=== PATIENT | male | born 1985 | race Caucasian/White ===

== ENCOUNTER → 2018-03-26 | Outpatient (CLI) | payer BC ==
--- NOTE | 2018-03-26 18:36 | XR ---
EXAMINATION TYPE: XR KUB DATE OF EXAM: 03/26/2018 COMPARISON: NONE HISTORY: Flank pain TECHNIQUE: 2 views supine FINDINGS: There is no sign of intestinal obstruction or pneumoperitoneum. Fecal pattern is normal. Th ere is no evidence of a mass. There are phleboliths in the pelvis. Sacroiliac joints appear normal. T here are no pathologic calcifications over the kidneys. IMPRESSION: Nonacute abdomen.
--- NOTE | 2018-03-26 19:29 | US ---
EXAMINATION TYPE: US kidneys/renal and bladder DATE OF EXAM: 03/26/2018 COMPARISON: NONE CLINICAL HISTORY: Flank Pain R10.31 R10.32. Frequency of urination EXAM MEASUREMENTS: Right Kidney: 11.5 x 5.2 x 7.5 cm Left Kidney: 11.6 x 6.5 x 6.8 cm Post Void Residual Volume: 42.0 mL Right Kidney: fluid noted in renal pelvis, even post void Left Kidney: No hydronephrosis or masses seen Bladder: wnl Bilateral Jets seen: Yes Normal Post Void Residual: yes There is no evidence for hydronephrosis at this point in time. No nephrolithiasis is seen. . The u rinary bladder is anechoic. Bilateral ureteral jets are seen. IMPRESSION: There is probably a 1.6 cm right renal parapelvic cyst. No evidence of renal obstruction. No evidence of solid renal mass.
== END | disposition home or self-care (01) ==
LOC: RADUSMAIN 17:51
PROVIDERS: ATTEND Urology
DX: R10.31 Right lower quadrant pain (principal); R10.32 Left lower quadrant pain; R35.0 Frequency of micturition
CPT/HCPCS: 74018; 76770

== ENCOUNTER → 2019-10-31 | Outpatient (CLI) | payer BC ==
--- NOTE | 2019-11-01 08:45 | US ---
EXAMINATION TYPE: US renals and bladder DATE OF EXAM: 10/31/2019 COMPARISON: US 03/26/2018 CLINICAL HISTORY: N20.0 Kidney stones. EXAM MEASUREMENTS: Right Kidney: 11.6 x 5.1 x 6.1 cm Left Kidney: 11.8 x 5.9 x 6.1 cm Right Kidney: small amount of fluid seen in renal pelvis. No hydronephrosis. Left Kidney: No hydronephrosis or masses seen Bladder: wnl Bilateral Jets seen: Yes There is no evidence for hydronephrosis at this point in time. No nephrolithiasis is seen. No alan s are identified. The urinary bladder is anechoic. Bilateral ureteral jets are seen. IMPRESSION: Unremarkable renal ultrasound. No hydronephrosis. No nephrolithiasis sonographically of e ither kidney.
== END | disposition home or self-care (01) ==
LOC: RADUSMAIN 17:26
PROVIDERS: ATTEND Family Medicine
DX: N20.0 Calculus of kidney (principal)
CPT/HCPCS: 76770

== ENCOUNTER → 2022-01-17 | Outpatient (CLI) | payer MEDICAID ==
--- NOTE | 2022-01-17 10:58 | US ---
EXAMINATION TYPE: US scrotum with doppler. Grayscale and color Doppler Duplex imaging performed of t lissette scrotum. DATE OF EXAM: 01/17/2022 COMPARISON: NONE CLINICAL HISTORY: E29.1 TESTICULAR HYPOFUNCTION. EXAM MEASUREMENTS: TESTICLES: Right Testicle: 3.7 x 2.0 x 2.8 cm Left Testicle: 4.7 x 2.5 x 3.2 cm EPIDIDYMIS HEAD: Right Epididymis: 0.8 cm Left Epididymis: 1.2 cm Left cystic cluster measuring 0.5cm Doppler performed to assess for testicular vascularity; good bilateral color flow and waveforms are s een. Presence of hydroceles: no Presence of varicoceles: Left shows slightly dilated vessels. Testicles are symmetric and normal in size. No concerning focal intratesticular mass. IMPRESSION: As above.
[2022-01-17 18:42] LABS: Albumin 4.5 g/dL (3.8-4.9); Estradiol 33.3 pg/mL; Follicle Stimulating Hormone 2.2 mIU/mL
[2022-01-17 20:02] LABS: Protein, Total 7.2 g/dL (6.2-8.2)
== END | disposition home or self-care (01) ==
LOC: RADUSWWP 10:10
PROVIDERS: ATTEND Obstetrics & Gynecology Reproductive Endocrinology
DX: Z01.818 Encounter for other preprocedural examination (principal); N50.3 Cyst of epididymis; I86.1 Scrotal varices
CPT/HCPCS: 76870; 82040; 82670; 83001; 83002; 84165; 84270; 84403; 93975

== ENCOUNTER → 2024-07-05 | Outpatient (CLI) | payer MEDICAID ==
[2024-07-06 02:58] LABS: Blood Urea Nitrogen 13.7 mg/dL (9.0-27.0); Calcium 9.7 mg/dL (8.7-10.3); Carbon Dioxide 27.9 mmol/L (21.6-31.8); Chloride 98 mmol/L (96-109); Glucose 91 mg/dL (70-110); Potassium 3.3 mmol/L (3.5-5.5); Sodium 141 mmol/L (135-145)
== END | disposition home or self-care (01) ==
LOC: LABWHC1 15:30
PROVIDERS: ATTEND Family Medicine
DX: E87.6 Hypokalemia (principal)
CPT/HCPCS: 36415; 80048